=== PATIENT | male | born 1975 | race Caucasian/White ===

== ENCOUNTER 2017-12-02 14:08 | Emergency (ER) | payer SELFPAY ==
[~2017-12-02] VITALS: Ht 180.3 cm; Wt 83.9 kg
[2017-12-02 14:19] VITALS: Ht 180.3 cm; Wt 83.9 kg
[2017-12-02 16:04] VITALS: BP 153/104
== END 2017-12-02 16:04 | disposition home or self-care (01) ==
LOC: ED 14:08
DX: F41.9 Anxiety disorder, unspecified (principal); G47.00 Insomnia, unspecified